=== PATIENT | female | born 1990 | race Caucasian/White ===

== ENCOUNTER 2016-12-06 09:06 | Observation (INO) | payer MEDICAID ==
[2016-12-06] VITALS (14 sets, daily range): BP systolic 92–111; RESP 12–19; TEMP 97.6–99.5
[~2016-12-06 09:06] MED LIST: BUPIVACA/EPI 0.25% PF 30ML NERVEBLOCK ONE; INDOCYANINE GREEN 25 MG VIAL IV ONE; LIDOCAINE 1% 20ML NERVEBLOCK ONE
[2016-12-06] MEDS ORDERED: ONDANSETRON 4 MG VIAL IV PUSH ONE (10:09)
[2016-12-06] MEDS ORDERED: DEXAMETHASONE 4 MG/ML VIAL IV ONE (10:09)
[2016-12-06] MEDS ORDERED: ACETAMINOPHEN 1,000 MG/100 ML IV ONE (10:09)
[2016-12-06] MEDS ORDERED: LIDOCAINE 2% SYR 5 ML IV ONE (10:09)
[2016-12-06] MEDS ORDERED: FENTANYL 100 MCG/2 ML AMP IV ONE (10:09)
[2016-12-06] MEDS ORDERED: KETOROLAC 30 MG/ML VIAL IV ONE (10:09)
[2016-12-06] MEDS ORDERED: NEOSTIGMINE 10 MG/10 ML VIAL IV ONE (10:09)
[2016-12-06] MEDS ORDERED: GLYCOPYRROLATE 0.2 MG/ML VIAL IV ONE (10:09)
[2016-12-06] MEDS ORDERED: PROPOFOL 20 ML VIAL IV ONE (10:09)
[2016-12-06] MEDS ORDERED: ROCURONIUM 50 MG VIAL IV ONE (10:09)
[2016-12-06] MEDS ORDERED: SODIUM CHLORIDE 0.9% 1,000 ML ONE ×2 (10:24→13:06)
[2016-12-06] MEDS ORDERED: ONDANSETRON 4 MG VIAL ONE (10:24)
[2016-12-06] MEDS ORDERED: DILAUDID 1 MG/ML AMP IV ONE (12:00)
[2016-12-06] MEDS ORDERED: CEFAZOLIN 2,000 MG in SODIUM CHLORIDE 0.9% 100 ML IV ONE (12:55)
[2016-12-06] MEDS ORDERED: INDOCYANINE GREEN 25 MG VIAL IV ONE (12:55)
[2016-12-06] MEDS ORDERED: LACT RINGERS 1,000 ML IV SCH (14:10)
[2016-12-06] MEDS ORDERED: MORPHINE 2 MG/ML SYR IV PRN (14:10)
[2016-12-06] MEDS ORDERED: MEPERIDINE 25 MG/ML IV PRN (14:10)
[2016-12-06] MEDS ORDERED: LIDOCAINE 1% BUFFERED 1 ML SYR INTRADERM PRN (14:10)
[2016-12-06] MEDS ORDERED: ONDANSETRON 4 MG VIAL IV PRN (14:10)
[2016-12-06] MEDS ORDERED: OXYCODONE 5 MG TAB PO PRN (14:10)
[2016-12-06] MEDS ORDERED: MORPHINE 4 MG/ML SYR IV PRN (14:10)
[2016-12-06] MEDS ORDERED: ONDANSETRON 4 MG VIAL IV PUSH PRN (16:15)
[2016-12-06] MEDS ORDERED: SALINE FLUSH 10 ML FLUSH PRN (16:15)
[2016-12-06] MEDS: DILAUDID 1 MG/ML AMP IV PRN ×4 (16:38→22:04)
[2016-12-06] MEDS ORDERED: MISSING DOSE XX ONE (20:20)
[2016-12-06] MEDS: FAMOTIDINE 20 MG INJ IV SCH (20:45)
[2016-12-06] MEDS: SALINE FLUSH 10 ML FLUSH SCH (20:45)
[2016-12-07] MEDS: DILAUDID 1 MG/ML AMP IV PRN ×2 (01:20→08:57)
[2016-12-07 02:54] VITALS: BP_SYST 74; RESP 16; TEMP 97.9
[2016-12-07 03:02] VITALS: BP_SYST 74
[2016-12-07] MEDS ORDERED: SODIUM CHLORIDE 0.9% FLUSH BAG 500 ML IV SCH (06:00)
[2016-12-07 06:01] VITALS: BP_SYST 100
[2016-12-07 08:00] VITALS: BP_SYST 94; RESP 16; TEMP 97.4
[2016-12-07] MEDS: FAMOTIDINE 20 MG INJ IV SCH (08:25)
[2016-12-07] MEDS: SALINE FLUSH 10 ML FLUSH SCH (08:25)
[2016-12-07 10:59] VITALS: BP_SYST 96; RESP 16; TEMP 97.3
[2016-12-07 11:01] VITALS: BP_SYST 96; RESP 16; TEMP 97.3
== END 2016-12-07 10:18 | disposition home or self-care (01) ==
LOC: ER 09:25 → SURG 11:50 → SDS 16:12 → 5THE 17:02
PROVIDERS: ADMIT Surgery; ATTEND Surgery
DX: K80.10 Calculus of gallbladder with chronic cholecystitis without obstruction (principal); F17.210 Nicotine dependence, cigarettes, uncomplicated
CPT/HCPCS: 36415; 76705; 80053; 80076; 81001; 83690; 84703; 85025; 87088; 88304; 94799; 96361; 96374